=== PATIENT | female | born 1995 | race Caucasian/White ===

== ENCOUNTER 2018-11-24 16:06 | Emergency (ER) | payer OTHER ==
[~2018-11-24] VITALS: Wt 51.6 kg
[2018-11-24 16:08] VITALS: BP 136/76; PULSE 117; RESP 18
[2018-11-24] MEDS ORDERED: ACETAMINOPHEN 500 MG TAB PO STA (16:47)
[2018-11-24] MEDS ORDERED: AMOX500C2 PO (16:48)
[2018-11-24] MEDS ORDERED: ACET500C5 PO (16:48)
[2018-11-24] MEDS ORDERED: AMOXICILLIN 500 MG CAP PO ONE (17:00)
[2018-11-24] MEDS ORDERED: IBUPROFEN 600 MG TAB PO ONE (17:00)
--- NOTE | 2018-11-24 17:04 | ERD ---
ER Documentation Chief Complaint Chief Complaint SORE THROAT X 3 DAYS HPI This is a 23-year-old female who presents ED with complaints of sore throat times 3 days. Patient admits to fevers, seeing white spots at the back of her throat and difficulty swallowing. Tolerating p.o. liquids. Denies cough, congestion, runny nose, nausea, vomiting, diarrhea, constipation or other symptoms. Admits to history of tobacco and cannabinoid use ROS All systems reviewed and are negative except as per history of present illness. Medications Home Meds Active Scripts Amoxicillin* (Amoxicillin*) 500 Mg Cap, 500 MG PO TID for 10 Days, CAP Prov:COLTON RANGEL PA-C 11/24/18 Acetaminophen* (Tylophen*) 500 Mg Capsule, 1 CAP PO Q6H PRN for PAIN AND OR ELEVATED TEMP, #20 CAP Prov:COLTON RANGEL PA-C 11/24/18 Allergies Allergies: Coded Allergies: azithromycin (Verified Allergy, 10/07/13) diphenhydramine HCl (Verified Allergy, 10/07/13) ondansetron HCl (Verified Allergy, 10/07/13) FmHx Family History: No diabetes Physical Exam Vitals Vital Signs Date Temp Pulse Resp B/P (MAP) Pulse Ox O2 O2 Flow FiO2 Time Delivery Rate 11/24/18 99.1 117 18 136/76 99 16:08 (96) Physical Exam Physical Exam Vitals signs: Reviewed by me. General: Well developed, well nourished, in no acute distress. Patient is awake and alert. Head: Normocephalic, atraumatic. Eyes: Normal conjunctiva, Pupils PERRLA, EOM intact grossly ENT: Pharynx is clear, Moist mucous membranes, external ears, nose and mouth normal, oropharynx is remarkable for erythema, tonsillar adenopathy with exudate and erythema, no kissing tonsils, no uvula deviation, Neck: Supple, no masses, mild anterior cervical lymphadenopathy Respiratory: Clear to auscultation bilaterally with no wheezing, rhonchi, rales, no distress Cardiovascular: RRR, no murmurs, rubs, or gallops Skin: warm and dry, No rash Psych: Normal mood Results 24 hrs Current Medications Medications Dose Sig/Forest Start Time Status Last (Trade) Ordered Route PRN Stop Time Admin Dose Reason Admin 1,000 mg ONCE STAT 11/24/18 DC 11/24/18 Acetaminophen PO 16:47 17:10 (Tylenol 11/24/18 16:48 Tab) Ibuprofen 600 mg ONCE ONCE 11/24/18 DC 11/24/18 (Motrin) PO 17:00 17:10 11/24/18 17:01 Amoxicillin 500 mg ONCE ONCE 11/24/18 DC 11/24/18 PO 17:00 17:10 (Amoxicillin) 11/24/18 17:01 Procedures/MDM ER COURSE: The patient was given amoxicillin, Motrin, Tylenol The medication was well tolerated and the patient reports improvement in symptoms. The patient was stable throughout ED course. I kept the patient and/or family informed of laboratory and diagnostic imaging results throughout the emergency room course. The patient was promptly evaluated and a treatment plan was devised based on H&P and other data. This plan was discussed with the patient who agreed and had no further questions or concerns prior to discharge. MEDICAL DECISION MAKIN-year-old female presents ED with sore throat times 3 days. This is likely strep pharyngitis given fever, adenopathy, exudate and no cough. No evidence of retropharyngeal abscess, epiglottitis, retropharyngeal abscess, peritonsillar abscess, meningitis, sepsis. At this time there is no ENT emergency. Vitals are stable and patient can be managed outpatient with close follow-up. Advised patient follow-up with primary care in the next 48 hours. Return to ED with any worsening symptoms. After discharging patient she told nursing that she may have been exposed to gonorrhea and chlamydia and would like to be treated prophylactically for gonorrhea and chlamydia. Patient was then given 1 g of azithromycin as well as 250 IM of ceftriaxone. Also collected urine to test for gonorrhea and chlamydia. Advised patient follow-up with her primary care or [facility] for a full STD panel testing. DISPOSITION PLAN: We discussed follow up with the patient's primary care doctor within 24 to 48 hours. Patient counseled regarding my diagnostic impression and care plan. Prior to discharge all questions answered. Pt agrees with treatment plan and understands strict return precautions. Precautionary instructions provided including instructions to return to the ER if not improving or for any worsening or changing symptoms or concerns. SPECIALIST FOLLOW UP RECOMMENDED: None Patient has been advised to follow up with primary care in 1-2 days. Disclaimer: Inadvertent spelling and grammatical errors are likely due to EHR/dictation software use and do not reflect on the overall quality of patient care. Also, please note that the electronic time recorded on this note does not necessarily reflect the actual time of the patient encounter. Blood Pressure Assessment: Patient's blood pressure was elevated (>120/80) but appears stable without evidence of hypertension emergency or urgency. The patient was counseled about the risks of hypertension and urged to pursue outpatient monitoring and therapy within a week with their primary care physician. Departure Diagnosis: Primary Impression: Strep pharyngitis Additional Impression: Exposure to STD Condition: Stable Patient Instructions: If You Think You Have an STD, Pharyngitis, Strep (Presumed) Referrals: [facility] YOU HAVE RECEIVED A MEDICAL SCREENING EXAM AND THE RESULTS INDICATE THAT YOU DO NOT HAVE A CONDITION THAT REQUIRES URGENT TREATMENT IN THE EMERGENCY DEPARTMENT. FURTHER EVALUATION AND TREATMENT OF YOUR CONDITION CAN WAIT UNTIL YOU ARE SEEN IN YOUR DOCTORS OFFICE WITHIN THE NEXT 1-2 DAYS. IT IS YOUR RESPONSIBILITY TO MAKE AN APPOINTMENT FOR FOLOW-UP CARE. IF YOU HAVE A PRIMARY DOCTOR --you should call your primary doctor and schedule an appointment IF YOU DO NOT HAVE A PRIMARY DOCTOR YOU CAN CALL OUR PHYSICIAN REFERRAL HOTLINE AT IF YOU CAN NOT AFFORD TO SEE A PHYSICIAN YOU CAN CHOSE FROM THE FOLLOWING [facility] [address] [facility]. [facility] [address] [facility] [address] [facility]. [facility] [address] [facility]. [facility] [address] [facility]. [facility] [address] Additional Instructions: Patient advised to return to the ED immediately for new or worsening symptoms. Patient advised to follow up with primary care provider in the next 24-48 hours. Patient verbalized understanding and agrees with treatment plan and course of action. If patient has no primary care they may follow up with one of the [facility] clinics listed on the following page or one of the options listed below [facility] + [facility] [address] [place] [address] or [facility] [address] [place] [address] or [facility] [address] [place] [address] COLTON RANGEL PA-C Nov 24, 2018 17:04
[2018-11-24] MEDS ORDERED: AZITHROMYCIN 250 MG TAB PO ONE (17:30)
[2018-11-24] MEDS ORDERED: CEFTRIAXONE 250 MG INJ IM ONE (17:30)
== END 2018-11-24 17:45 | disposition home or self-care (01) ==
LOC: FTE 16:06
DX: J02.0 Streptococcal pharyngitis (principal); R50.9 Fever, unspecified; Z20.2 Contact with and (suspected) exposure to infections with a predominantly sexual mode of transmission
CPT/HCPCS: 81003; 87086; 87591; 96372; J0696; Z7502; Z7610

== ENCOUNTER 2018-11-29 13:44 | Emergency (ER) | payer OTHER ==
[~2018-11-29] VITALS: Ht 157.5 cm; Wt 50.0 kg
[~2018-11-29 13:44] MED LIST: ACET500C5 PO; AMOX500C2 PO
[2018-11-29 13:55] VITALS: BP 158/77; PULSE 140; RESP 18; Ht 157.5 cm; Wt 50.0 kg
[2018-11-29] MEDS ORDERED: KETOROLAC 30 MG INJ IV STA (14:10)
[2018-11-29] MEDS ORDERED: SOD CHLORIDE 0.9% 1,000 ML IV STA (14:10)
[2018-11-29] MEDS ORDERED: DEXAMETHASONE 10 MG/ML 1 ML INJ IV ONE (14:30)
[2018-11-29] MEDS ORDERED: CLINDAMYCIN 600 MG/D5W (PMX) 50 ML IVPB SCH (15:30)
[2018-11-29] MEDS ORDERED: NAPR-985 PO (15:45)
[2018-11-29] MEDS ORDERED: PRED20TA PO (15:45)
[2018-11-29] MEDS ORDERED: CLIN300C10 PO (15:45)
--- NOTE | 2018-11-29 15:49 | ERD ---
ER Documentation Chief Complaint Chief Complaint SORE THROAT WITH REPORTS OF POSS ALLERGY TO Z-PK HPI 23-year-old female presenting with sore throat. Patient was taking a Z-Jamshid with no alleviation of symptoms. She states that she has had severe pain to the right side of her tonsils. Patient states that she has had continued fevers and pain with swallowing. She denies any neck pain. Patient was recently in prison and was recently treated for gonorrhea and chlamydia however on reevaluation of her previous visit her test results were negative. ROS All systems reviewed and are negative except as per history of present illness. Medications Home Meds Active Scripts Naproxen* (Naprosyn*) 500 Mg Tablet, 500 MG PO BID PRN for PAIN AND/OR INFLAMMATION, #30 TAB Prov:JOY PALENCIA PA-C 11/29/18 Prednisone* (Prednisone*) 20 Mg Tab, 40 MG PO DAILY for 4 Days, TAB Prov:JOY PALENCIA PA-C 11/29/18 Clindamycin Hcl* (Clindamycin Hcl*) 300 Mg Capsule, 300 MG PO TID for 10 Days, CAP Prov:JOY PALENCIA PA-C 11/29/18 Amoxicillin* (Amoxicillin*) 500 Mg Cap, 500 MG PO TID for 10 Days, CAP Prov:COLTON RANGEL PA-C 11/24/18 Acetaminophen* (Tylophen*) 500 Mg Capsule, 1 CAP PO Q6H PRN for PAIN AND OR ELEVATED TEMP, #20 CAP Prov:COLTON RANGEL PA-C 11/24/18 Allergies Allergies: Coded Allergies: diphenhydramine HCl (Verified Allergy, Unknown, 11/24/18) ondansetron HCl (Verified Allergy, Unknown, 11/24/18) PMhx/Soc Medical and Surgical Hx: pt denies Medical Hx, pt denies Surgical Hx Hx Alcohol Use: No Hx Substance Use: Yes (MARIJUANA) Hx Tobacco Use: Yes Smoking Status: Current every day smoker FmHx Family History: No diabetes, No coronary disease, No other Physical Exam Vitals Vital Signs Date Temp Pulse Resp B/P (MAP) Pulse Ox O2 O2 Flow FiO2 Time Delivery Rate 11/29/18 100.2 140 18 158/77 96 13:55 (104) Physical Exam GENERAL: The patient is well-appearing, well-nourished, in no acute distress HEENT: Atraumatic. Conjunctivae are pink. Pupils equal, round, and reactive to light. There is no scleral icterus. Tympanic membranes clear bilaterally. Oropharynx erythematous with exudate noted to the right side of the tonsils with uvula midline. No nystagmus or photophobia. NECK: C-spine is soft and supple. There is no meningismus. There is no cervical lymphadenopathy. CHEST: Clear to auscultation bilaterally. There are no rales, wheezes or rhonchi. HEART: Regular rate and rhythm. No murmurs, clicks, rubs or gallops. Results 24 hrs Laboratory Tests Test 11/29/18 14:28 11/29/18 14:40 Urine Color YELLOW Urine Clarity SLIGHTLY CLOUDY Urine pH 7.0 Urine Specific [place] 1.018 Urine Ketones NEGATIVE mg/dL Urine Nitrite NEGATIVE mg/dL Urine Bilirubin NEGATIVE mg/dL Urine Urobilinogen NEGATIVE mg/dL Urine Leukocyte Esterase NEGATIVE Cecy/ul Urine Microscopic RBC 0 /HPF Urine Microscopic WBC 1 /HPF Urine Squamous Epithelial Cells MODERATE /HPF Urine Hemoglobin NEGATIVE mg/dL Urine Glucose NEGATIVE mg/dL Urine Total Protein NEGATIVE mg/dl Monoscreen Negative POC Beta HCG, Qualitative NEGATIVE Current Medications Medications Dose Sig/Forest Start Time Status Last (Trade) Ordered Route PRN Stop Time Admin Dose Reason Admin Sodium 1,000 ml @ Q1H STAT 11/29/18 DC 11/29/18 Chloride 1,000 mls/hr IV 14:10 14:39 11/29/18 15:09 Ketorolac 30 mg ONCE STAT 11/29/18 DC 11/29/18 Tromethamine IV 14:10 14:43 (Toradol) 11/29/18 14:12 10 mg ONCE ONCE 11/29/18 DC 11/29/18 Dexamethasone IV 14:30 14:39 (Decadron) 11/29/18 14:31 Clindamycin 50 ml @ 50 ONCE IVPB 11/29/18 HCl/ mls/hr 15:30 Dextrose 11/29/18 16:29 Procedures/MDM ER course: 1 L normal saline given ED. IV Decadron and IV clindamycin given ED. Monospot and strep swab were negative. MDM: 23-year-old female presenting with consistent concerning findings of strep throat. I will treat with stronger antibiotic. I have considered gonorrhea of the throat however have low suspicion. I have low suspicion for peritonsillar abscess as there is no uvular deviation noted. Patient's mono test is negative and I will treat with oral antibiotics. Patient is discharged with stricter precautions. Patient was told if symptoms change or worsen to return immediately to the ER. All questions answered at discharge Departure Diagnosis: Primary Impression: Sore throat Condition: Stable Patient Instructions: Self-Care for Sore Throats Referrals: [facility] YOU HAVE RECEIVED A MEDICAL SCREENING EXAM AND THE RESULTS INDICATE THAT YOU DO NOT HAVE A CONDITION THAT REQUIRES URGENT TREATMENT IN THE EMERGENCY DEPARTMENT. FURTHER EVALUATION AND TREATMENT OF YOUR CONDITION CAN WAIT UNTIL YOU ARE SEEN IN YOUR DOCTORS OFFICE WITHIN THE NEXT 1-2 DAYS. IT IS YOUR RESPONSIBILITY TO MAKE AN APPOINTMENT FOR FOLOW-UP CARE. IF YOU HAVE A PRIMARY DOCTOR --you should call your primary doctor and schedule an appointment IF YOU DO NOT HAVE A PRIMARY DOCTOR YOU CAN CALL OUR PHYSICIAN REFERRAL HOTLINE AT IF YOU CAN NOT AFFORD TO SEE A PHYSICIAN YOU CAN CHOSE FROM THE FOLLOWING [facility] [address] [place] [address] [facility] [address] [place] [facility]. [facility] [address] [facility] [address] [facility] [address] [facility]. [facility]. [address] Additional Instructions: FOLLOW UP WITH YOUR PRIMARY CARE PHYSICIAN TOMORROW.Return to this facility if you are not improving as expected. JOY PALENCIA PA-C Nov 29, 2018 15:49
== END 2018-11-29 16:36 | disposition home or self-care (01) ==
LOC: FTE 13:44
DX: J02.9 Acute pharyngitis, unspecified (principal); F17.210 Nicotine dependence, cigarettes, uncomplicated
CPT/HCPCS: 81001; 81025; 86308; 87880; 96361; 96365; 96375; J1100; J1885; J7030; Z7502; Z7610; 81003

== ENCOUNTER 2019-02-21 14:42 | Emergency (ER) | payer OTHER ==
[~2019-02-21] VITALS: Wt 51.4 kg
[~2019-02-21 14:42] MED LIST changes: +CLIN300C10 PO; +NAPR-985 PO; +PRED20TA PO
[2019-02-21 14:44] VITALS: BP 146/73; PULSE 112; RESP 16
[2019-02-21] MEDS ORDERED: SOD CHLORIDE 0.9% 1,500 ML IV STA (15:07)
[2019-02-21] MEDS ORDERED: ACETAMINOPHEN 500 MG TAB PO STA (15:07)
[2019-02-21] MEDS ORDERED: METOCLOPRAMIDE 10 MG INJ IV ONE (16:00)
[2019-02-21] MEDS ORDERED: CEPHALEXIN 500 MG CAP PO ONE (17:00)
[2019-02-21] MEDS ORDERED: METO10TA92 PO (17:12)
[2019-02-21] MEDS ORDERED: PREN1TAB13 PO (17:12)
[2019-02-21] MEDS ORDERED: CEPH-443 PO (17:12)
[2019-02-21] MEDS ORDERED: PNV1TABL91 PO (17:13)
--- NOTE | 2019-02-21 17:16 | ERD ---
ER Documentation Chief Complaint Chief Complaint nausea, dizzy; 'vision dark and faints' in the sun x1wk. last sync epis AM HPI 24-year-old female presents with approximately 1 week history of intermittent dizziness and feeling like she is going to faint. She denies any loss of consciousness. It is worse when she is in the sun. She has nausea without vomiting. She denies abdominal pain, cough, shortness breath, fevers, urinary complaints. Last menstrual period approximately 1 month ago although she is irregular. She had a beer yesterday but denies any regular drug or alcohol use. ROS All systems reviewed and are negative except as per history of present illness. Medications Home Meds Active Scripts Pnv No.122/Iron/Folic Acid ( Multi Tablet) 1 Each Tablet, 1 EACH PO QDAY, #100 TAB Prov:SOTO HERNANDEZ MD 02/21/19 Metoclopramide* (Reglan*) 10 Mg Tablet, 10 MG PO Q6 PRN for NAUSEA AND/OR VOMITING, #15 TAB Prov:SOTO HERNANDEZ MD 02/21/19 Pnv95/Ferrous Fumarate/FA ( Vitamins Tablet) 1 Each Tablet, 1 EACH PO QDAY, #100 TAB Prov:SOTO HERNANDEZ MD 02/21/19 Cephalexin* (Keflex*) 500 Mg Capsule, 500 MG PO BID for 5 Days, CAP Prov:SOTO HERNANDEZ MD 02/21/19 Naproxen* (Naprosyn*) 500 Mg Tablet, 500 MG PO BID PRN for PAIN AND/OR INFLAMMATION, #30 TAB Prov:JOY PALENCIA PA-C 11/29/18 Prednisone* (Prednisone*) 20 Mg Tab, 40 MG PO DAILY for 4 Days, TAB Prov:JOY PALENCIA PA-C 11/29/18 Clindamycin Hcl* (Clindamycin Hcl*) 300 Mg Capsule, 300 MG PO TID for 10 Days, CAP Prov:JOY PALENCIA PA-C 11/29/18 Amoxicillin* (Amoxicillin*) 500 Mg Cap, 500 MG PO TID for 10 Days, CAP Prov:COLTON RANGEL PA-C 11/24/18 Acetaminophen* (Tylophen*) 500 Mg Capsule, 1 CAP PO Q6H PRN for PAIN AND OR ELEVATED TEMP, #20 CAP Prov:COLTON RANGEL PA-C 11/24/18 Allergies Allergies: Coded Allergies: diphenhydramine HCl (Verified Allergy, Unknown, 02/21/19) ondansetron HCl (Verified Allergy, Unknown, 02/21/19) PMhx/Soc Medical and Surgical Hx: pt denies Surgical Hx History of Surgery: No Anesthesia Reaction: No Hx Neurological Disorder: No Hx Respiratory Disorders: No Hx Cardiac Disorders: No Hx Psychiatric Problems: No Hx Miscellaneous Medical Probl: Yes (SEIZURE DISORDER) Hx Alcohol Use: No Hx Substance Use: Yes (MARIJUANA) Hx Tobacco Use: Yes Smoking Status: Former smoker FmHx Family History: No diabetes, No coronary disease, No other Physical Exam Vitals Vital Signs Date Temp Pulse Resp B/P (MAP) Pulse Ox O2 O2 Flow FiO2 Time Delivery Rate 02/21/19 37.8 15:39 02/21/19 100.0 112 16 146/73 99 14:44 (97) Physical Exam Const: No acute distress Head: Atraumatic Eyes: Normal Conjunctiva ENT: Normal External Ears, Nose and Mouth. Neck: Full range of motion. No meningismus. Resp: Clear to auscultation bilaterally Cardio: Regular rate and rhythm, no murmurs Abd: Soft, non tender, non distended. Normal bowel sounds Skin: No petechiae or rashes Back: No midline or flank tenderness Ext: No cyanosis, or edema Neur: Awake and alert Psych: Normal Mood and Affect Result Diagram: 02/21/19 1526 02/21/19 1526 Results 24 hrs Laboratory Tests Test 02/21/19 15:25 02/21/19 15:26 POC Beta HCG, Qualitative POSITIVE White Blood Count 7.4 10^3/ul Red Blood Count 4.00 10^6/ul Hemoglobin 11.9 g/dl Hematocrit 36.5 % Mean Corpuscular Volume 91.3 fl Mean Corpuscular Hemoglobin 29.8 pg Mean Corpuscular Hemoglobin Concent 32.6 g/dl Red Cell Distribution Width 13.9 % Platelet Count 328 10^3/UL Mean Platelet Volume 10.1 fl Immature Granulocytes % 0.400 % Neutrophils % 61.7 % Lymphocytes % 26.6 % Monocytes % 8.6 % Eosinophils % 2.3 % Basophils % 0.4 % Nucleated Red Blood Cells % 0.0 /100WBC Immature Granulocytes # 0.030 10^3/ul Neutrophils # 4.6 10^3/ul Lymphocytes # 2.0 10^3/ul Monocytes # 0.6 10^3/ul Eosinophils # 0.2 10^3/ul Basophils # 0.0 10^3/ul Nucleated Red Blood Cells # 0.0 10^3/ul Urine Color YELLOW Urine Clarity SLIGHTLY CLOUDY Urine pH 5.0 Urine Specific [place] 1.021 Urine Ketones NEGATIVE mg/dL Urine Nitrite NEGATIVE mg/dL Urine Bilirubin NEGATIVE mg/dL Urine Urobilinogen NEGATIVE mg/dL Urine Leukocyte Esterase TRACE Cecy/ul Urine Microscopic RBC 2 /HPF Urine Microscopic WBC 9 /HPF Urine Squamous Epithelial Cells FEW /HPF Urine Mucus FEW /HPF Urine Hemoglobin NEGATIVE mg/dL Urine Glucose NEGATIVE mg/dL Urine Total Protein NEGATIVE mg/dl Sodium Level 138 mmol/L Potassium Level 4.2 mmol/L Chloride Level 103 mmol/L Carbon Dioxide Level 26 mmol/L Anion Gap 9 Blood Urea Nitrogen 13 mg/dl Creatinine 0.49 mg/dl Est Glomerular Filtrat Rate mL/min > 60 mL/min Glucose Level 78 mg/dl Lactic Acid Level 1.3 mmol/L Calcium Level 9.3 mg/dl Total Bilirubin 0.5 mg/dl Direct Bilirubin 0.00 mg/dl Indirect Bilirubin 0.5 mg/dl Aspartate Amino Transf (AST/SGOT) 21 IU/L Alanine Aminotransferase (ALT/SGPT) 25 IU/L Alkaline Phosphatase 51 IU/L Total Protein 7.1 g/dl Albumin 4.0 g/dl Globulin 3.10 g/dl Albumin/Globulin Ratio 1.29 Lipase 74 U/L Current Medications Medications Dose Sig/Forest Start Time Status Last (Trade) Ordered Route PRN Stop Time Admin Dose Reason Admin Sodium 1,500 ml @ Q1H30M STAT 02/21/19 DC 02/21/19 Chloride 1,000 mls/hr IV 15:07 15:47 02/21/19 16:36 500 mg ONCE STAT 02/21/19 DC 02/21/19 Acetaminophen PO 15:07 15:39 (Tylenol 02/21/19 15:09 Tab) 10 mg ONCE ONCE 02/21/19 DC 02/21/19 Metoclopramid IV 16:00 16:09 e HCl 02/21/19 16:01 (Reglan) Cephalexin 500 mg ONCE ONCE 02/21/19 DC 02/21/19 (Keflex) PO 17:00 17:03 02/21/19 17:01 Procedures/MDM Urine hCG positive. CBC shows minimal anemia. Pelvic ultrasound shows approximate 7-week intrauterine with heart tones without acute abnormalities except for right ovarian corpus luteum cyst. Patient given 1 L normal saline IV, Reglan, and Tylenol. Patient was given Keflex for findings of white blood cells and leukocyte esterase on urine. Patient had a benign abdomen and felt much better after observation treatment. Patient is a G1 para 0. She presents with a one-week history of dizziness, near syncope, nausea. Many of her symptoms may be attributed to new diagnosis of . She does have findings of UTI and will treat for this. She will be discharged home with recommendations for [employer] SUPERVISOR follow-up, return precautions, fluids, vitamins and avoidance of alcohol drugs and tobacco. The patient was stable with no new complaints during the ER course. Clinically, there is no current evidence to suggest meningitis, sepsis, acute abdomen, pneumonia, stroke, acute coronary syndrome, pulmonary embolism, aortic dissection or any other emergent condition appearing to require further evaluation or hospitalization. Patient counseled regarding my diagnostic impression and care plan. Prior to discharge all questions answered. Pt agrees with treatment plan and understands strict return precautions. Pt is instructed to follow up with primary care provider within 24-48 hours. Precautionary instructions provided including instructions to return to the ER if not improving or for any worsening or changing symptoms or concerns. Disclaimer: Inadvertent spelling and grammatical errors are likely due to EHR/dictation software use and do not reflect on the overall quality of patient care. Also, please note that the electronic time recorded on this note does not necessarily reflect the actual time of the patient encounter. Departure Diagnosis: Primary Impression: UTI (urinary tract infection) Urinary tract infection type: acute cystitis Hematuria presence: without hematuria Qualified Codes: N30.00 - Acute cystitis without hematuria Additional Impression: Weeks of gestation: unspecified Qualified Codes: Z34.90 - Encounter for supervision of normal , unspecified, unspecified trimester Condition: Stable Patient Instructions: Understanding Urinary Tract Infections (UTIs), , New Dx Referrals: [employer] SUPERVISOR [place] [id number] [address] OFFICE FAX , [facility] [address] [place] [address] DR. HERNADEZ, [place] [address] [place] [address] [address] [facility], [facility] [address] [facility], [address], [place] [address] [address] ROBERT, [facility] [address] [facility], [place] [address] [facility] [address] [place] [address] [address] [facility] [address] - [address] SALAZAR, PATRICK [address] [place] [address] DR HDEZ, ANKITA [address] [facility]. [address], [place] [address] DR COLLIER, [facility] [address] [place], [place] [id number] Additional Instructions: Ultrasound confirms approximately 7-week normal-appearing . There is signs of urinary tract infection we will treat for this. Drink plenty of fluids at home. Follow-up with OB for further evaluation treatment. Recheck for fevers, vomiting, pain, bleeding, new worsening symptoms. Okay to take Tylenol for pain. SOTO HERNANDEZ MD February 21, 2019 17:16
== END 2019-02-21 17:10 | disposition home or self-care (01) ==
LOC: FTE 14:42
DX: O23.91 Unspecified genitourinary tract infection in pregnancy, first trimester (principal); Z3A.01 Less than 8 weeks gestation of pregnancy
CPT/HCPCS: 36415; 76801; 76817; 80053; 81001; 81025; 83605; 83690; 84702; 85025; 87086; 96361; 96374; J2765; J7030; Z7502; Z7610

== ENCOUNTER 2019-02-24 17:49 | Emergency (ER) | payer OTHER ==
[~2019-02-24] VITALS: Wt 42.0 kg
[~2019-02-24 17:49] MED LIST changes: +CEPH-443 PO; +METO10TA92 PO; +PNV1TABL91 PO; +PREN1TAB13 PO
[2019-02-24 17:52] VITALS: BP 130/65; PULSE 101; RESP 20
[2019-02-24] MEDS ORDERED: AZITHROMYCIN 500 MG TAB PO ONE (18:30)
--- NOTE | 2019-02-24 19:28 | ERD ---
ER Documentation Chief Complaint Chief Complaint BOYFRIEND GOT TESTED FOR STD.PT HAS NO SYMMPTOMS. NEED STD TESTING HPI 24-year-old female presented accompanying a patient here for dysuria. There are sexual partners. Her partner is confirmed to chlamydia positive. Patient was advised to check and is the patient for treatment. She was seen by me 2 days ago for vomiting was diagnosed with incidental . She denies abdominal pain, bleeding, fevers, current symptoms. She has not yet seen an OB provider. ROS All systems reviewed and are negative except as per history of present illness. Medications Home Meds Active Scripts Pnv No.122/Iron/Folic Acid ( Multi Tablet) 1 Each Tablet, 1 EACH PO QDAY, #100 TAB Prov:SOTO HERNANDEZ MD 02/21/19 Metoclopramide* (Reglan*) 10 Mg Tablet, 10 MG PO Q6 PRN for NAUSEA AND/OR VOMITING, #15 TAB Prov:SOTO HERNANDEZ MD 02/21/19 Pnv95/Ferrous Fumarate/FA ( Vitamins Tablet) 1 Each Tablet, 1 EACH PO QDAY, #100 TAB Prov:SOTO HERNANDEZ MD 02/21/19 Cephalexin* (Keflex*) 500 Mg Capsule, 500 MG PO BID for 5 Days, CAP Prov:SOTO HERNANDEZ MD 02/21/19 Naproxen* (Naprosyn*) 500 Mg Tablet, 500 MG PO BID PRN for PAIN AND/OR INFLAMMA TION, #30 TAB Prov:JOY PALENCIA PA-C 11/29/18 Prednisone* (Prednisone*) 20 Mg Tab, 40 MG PO DAILY for 4 Days, TAB Prov:JOY PALENCIA PA-C 11/29/18 Clindamycin Hcl* (Clindamycin Hcl*) 300 Mg Capsule, 300 MG PO TID for 10 Days, CAP Prov:JOY PALENCIA PA-C 11/29/18 Amoxicillin* (Amoxicillin*) 500 Mg Cap, 500 MG PO TID for 10 Days, CAP Prov:COLTON RANGEL PA-C 11/24/18 Acetaminophen* (Tylophen*) 500 Mg Capsule, 1 CAP PO Q6H PRN for PAIN AND OR ELEVATED TEMP, #20 CAP Prov:COLTON RANGEL PA-C 11/24/18 Allergies Allergies: Coded Allergies: diphenhydramine HCl (Verified Allergy, Unknown, 02/21/19) ondansetron HCl (Verified Allergy, Unknown, 02/21/19) PMhx/Soc History of Surgery: No Anesthesia Reaction: No Hx Neurological Disorder: No Hx Respiratory Disorders: No Hx Cardiac Disorders: No Hx Psychiatric Problems: No Hx Miscellaneous Medical Probl: Yes (SEIZURE DISORDER) Hx Alcohol Use: No Hx Substance Use: Yes (MARIJUANA) Hx Tobacco Use: Yes Physical Exam Vitals Vital Signs Date Temp Pulse Resp B/P (MAP) Pulse Ox O2 O2 Flow FiO2 Time Delivery Rate 02/24/19 98.5 101 20 130/65 98 17:52 (86) Physical Exam General-alert, lkk-pyt-[id number]. Ambulatory. Results 24 hrs Current Medications Medications Dose Sig/Forest Start Time Status Last (Trade) Ordered Route PRN Stop Time Admin Dose Reason Admin 1,000 mg ONCE ONCE 02/24/19 DC Azithromycin PO 18:30 (Zithromax) 02/24/19 19:03 Procedures/MDM Patient presents as a partner of someone is with confirmed chlamydia. She was advised to register as a patient for treatment of chlamydia which is important given her new diagnosis of state. Well-appearing. After triage patient apparently eloped and was no overt to be found. Good li effort was made to locate the patient to no avail. Patient marked as eloped. 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 HERNADEZ QUEMADO [address] [place], [place] [phone] BETH DUFFY [address] [facility], [address] [address] [address] [address] [place] [address] [facility] [place] [address] [place] [phone] [facility] [id number] SALAZAR, PATRICK [address], [facility] [phone] HDEZ, ANKITA [address] [facility]. [address], [facility] [id number] [address] COLLIER, [facility] [address] [place] [address] Additional Instructions: Avoid unprotected sex for the next week. Recommend treatment of any sexual partners. Follow-up with OB as previously recommended. Recheck for bleeding, fevers, pain, new or worsening symptoms. SOTO HERNANDEZ MD February 24, 2019 19:27
== END 2019-02-24 21:40 | disposition left against medical advice (07) ==
LOC: FTE 17:49
DX: A74.9 Chlamydial infection, unspecified (principal)
CPT/HCPCS: 99282

== ENCOUNTER 2019-06-17 21:38 | Inpatient (IN) | payer OTHER ==
[~2019-06-17] VITALS: Ht 167.6 cm; Wt 55.9 kg
[~2019-06-17 21:38] MED LIST changes: +CEPH500C PO
[2019-06-17 21:47] VITALS: BP 114/67; PULSE 112; RESP 18; Ht 167.6 cm; Wt 55.9 kg
[2019-06-17] MEDS ORDERED: CEFTRIAXONE 1 GM/50 ML (PMX) 50 ML IVPB ONE (23:00)
[2019-06-17] MEDS: SOD CHLORIDE 0.9% 1,000 ML IV SCH (23:19)
[2019-06-18] MEDS ORDERED: ONDANSETRON 4 MG INJ IV PRN (00:30)
[2019-06-18] MEDS: ACETAMINOPHEN 325 MG TAB PO PRN ×3 (00:36→15:10)
[2019-06-18] MEDS ORDERED: ALBUTEROL HFA 8 GM INHALER INH PRN (01:00)
[2019-06-18] MEDS: SOD CHLORIDE 0.9% 1,000 ML IV SCH ×2 (07:39→08:45)
[2019-06-18] MEDS: PRENATAL VITAMIN PO SCH (08:54)
[2019-06-18] MEDS: POTASSIUM CHLORIDE (SR) 20 MEQ TAB PO SCH (12:41)
[2019-06-19] MEDS: CEFTRIAXONE 1 GM/50 ML (PMX) 50 ML IVPB SCH (00:08)
[2019-06-19] MEDS: SOD CHLORIDE 0.9% 1,000 ML IV SCH ×4 (00:08→17:22)
[2019-06-19] MEDS: PRENATAL VITAMIN PO SCH (11:37)
[2019-06-19] MEDS: POTASSIUM CHLORIDE (SR) 20 MEQ TAB PO SCH (11:37)
[2019-06-19] MEDS: ACETAMINOPHEN 325 MG TAB PO PRN (18:38)
[2019-06-19] MEDS ORDERED: SENNA TAB PO ONE (22:30)
[2019-06-20] MEDS: CEFTRIAXONE 1 GM/50 ML (PMX) 50 ML IVPB SCH ×2 (00:29→17:00)
[2019-06-20] MEDS: SOD CHLORIDE 0.9% 1,000 ML IV SCH ×2 (00:30→11:02)
[2019-06-20] MEDS: ACETAMINOPHEN 325 MG TAB PO PRN (03:32)
[2019-06-20] MEDS: PRENATAL VITAMIN PO SCH (11:01)
[2019-06-20] MEDS: POTASSIUM CHLORIDE (SR) 20 MEQ TAB PO SCH (11:06)
== END 2019-06-20 18:30 | disposition home or self-care (01) | DRG 832 ==
LOC: L-D 21:38 → OBT 21:38 → L-D 06-18 00:03
PROVIDERS: ADMIT Obstetrics & Gynecology Gynecology; ATTEND Obstetrics & Gynecology Gynecology
DX: O23.02 Infections of kidney in pregnancy, second trimester (principal); O99.322 Drug use complicating pregnancy, second trimester; B96.20 Unspecified Escherichia coli [E. coli] as the cause of diseases classified elsewhere; O99.012 Anemia complicating pregnancy, second trimester; D50.9 Iron deficiency anemia, unspecified; F15.10 Other stimulant abuse, uncomplicated; F12.10 Cannabis abuse, uncomplicated; O99.332 Smoking (tobacco) complicating pregnancy, second trimester; F17.200 Nicotine dependence, unspecified, uncomplicated; Z3A.20 20 weeks gestation of pregnancy
CPT/HCPCS: 36415; 76700; 76815; 76817; 76856; 80053; 80307; 81001; 83540; 85025; 87086; 87591; 96360; 96366; G0463; J0696; J7030